=== PATIENT | female | born 1980 | race Caucasian/White ===

== ENCOUNTER 2020-09-19 11:15 | Emergency (ER) | payer BC ==
--- NOTE | 2020-09-19 12:23 | ER Document Report ---
ED Medical Screen (RME) - General Stated Complaint: ABDOMINAL PAIN, VAGINAL BLEEDING Time Seen by Provider: 09/19/20 12:19 Primary Care Provider: MURIEL SMITH NP [Primary Care Provider] - Follow up as needed Notes: HPI: 40-year-old female presenting with heavy vaginal bleeding with clots and pelvic cramping that began last night. Worse today at work. Describes handfuls of clots. Patient is concerned she might be having a miscarriage although she has a history of endometriosis and has irregular menstrual cycles last menstrual cycle was approximately 1 to 1-1/2 months ago. PHYSICAL EXAMINATION: Mild tenderness to the left pelvis on palpation. Patient appears uncomfortable I have greeted and performed a rapid initial assessment of this patient. A comprehensive ED assessment and evaluation of the patient, analysis of test re sults and completion of medical decision making process will be conducted by an additional ED providers. Physical Exam - Vital signs Vitals: Temp Pulse BP Pulse Ox 98.4 F 107 H 143/79 H 98 09/19/20 11:25 09/19/20 11:25 09/19/20 11:25 09/19/20 11:25 Course - Vital Signs Vital signs: Temp Pulse Resp BP Pulse Ox 98.4 F 107 H 143/79 H 98 09/19/20 11:25 09/19/20 11:25 09/19/20 11:25 09/19/20 11:25 Doctor's Discharge - Discharge Referrals: MURIEL SMITH NP [Primary Care Provider] - Follow up as needed
[2020-09-19 13:19] LABS: ABSOLUTE BASOPHILS # (AUTO) 0.1 10^3/uL (0.0-0.2); ABSOLUTE EOSINOPHILS # (AUTO) 0.6 10^3/uL (0.0-0.6); ABSOLUTE LYMPHOCYTES (AUTO) 3.7 10^3/uL (0.5-4.7); ABSOLUTE MONOCYTES (AUTO) 0.6 10^3/uL (0.1-1.4); ABSOLUTE NEUT (AUTO) 3.6 10^3/uL (1.7-8.2); BASOPHILS % (AUTO) 0.8 % (0-2); EOSINOPHILS % (AUTO) 6.7 % (0-6); HEMATOCRIT 29.3 % (36.0-47.0); HEMOGLOBIN 9.9 g/dL (12.0-15.5); LYMPHOCYTES % (AUTO) 43.4 % (13-45); MEAN CORPUSCULAR HEMOGLOBIN 28.2 pg (27.0-33.4); MEAN CORPUSCULAR HGB CONC 33.8 g/dL (32.0-36.0); MEAN CORPUSCULAR VOLUME 83 fl (80-97); PLATELET COUNT 328 10^3/uL (150-450); RED BLOOD COUNT 3.51 10^6/uL (3.72-5.28); RED CELL DISTRIBUTION WIDTH 12.9 % (11.5-14.0); SEGMENTED NEUTROPHILS % (AUTO) 42.1 % (42-78); TOTAL CELLS COUNTED % (AUTO) 100 %; WHITE BLOOD COUNT 8.6 10^3/uL (4.0-10.5)
[2020-09-19 13:31] LABS: ALBUMIN 4.8 g/dL (3.5-5.0); ALKALINE PHOSPHATASE 69 U/L (38-126); ANION GAP 12 (5-19); ASPARTATE AMINO TRANSFERASE 21 U/L (14-36); BILIRUBIN,DIRECT 0.1 mg/dL (0.0-0.4); BILIRUBIN,TOTAL 0.3 mg/dL (0.2-1.3); BLOOD UREA NITROGEN 15 mg/dL (7-20); CALCIUM 10.1 mg/dL (8.4-10.2); CARBON DIOXIDE 22 mmol/L (22-30); CHLORIDE 102 mmol/L (98-107); GLUCOSE 85 mg/dL (75-110); POTASSIUM 4.1 mmol/L (3.6-5.0); TOTAL PROTEIN 7.5 g/dL (6.3-8.2)
--- NOTE | 2020-09-19 13:57 | RADIOLOGY REPORT (SQ) ---
EXAM DESCRIPTION: U/S NON OB PEL TV W/DOPPLER IMAGES COMPLETED DATE/TIME: 09/19/2020 1:42 pm REASON FOR STUDY: left pelvic pain COMPARISON: None. TECHNIQUE: Dynamic and static grayscale images acquired of the pelvis via transvaginal approach and recorded on PACS. Additional selected color Doppler and spectral images recorded. LIMITATIONS: None. FINDINGS: UTERUS: Contour normal. No mass. ENDOMETRIAL STRIPE: No focal or generalized thickening. No masses. CERVIX: Nabothian cysts. RIGHT OVARY AND DOPPLER: Normal size. 2.7 cm cyst. No worrisome masses. Normal arterial vascular fl ow without evidence for torsion. LEFT OVARY AND DOPPLER: Normal size. 3.3 cm cyst. No worrisome masses. Normal arterial vascular tasha w without evidence for torsion. FREE FLUID: Trace. OTHER: No other significant finding. MEASUREMENTS: UTERUS: 4.3 x 5.1 x 8 6 cm. ENDOMETRIAL STRIPE: 11.6 mm. RIGHT OVARY: 2.3 x 3.1 x 3 6 cm. LEFT OVARY: 2.3 x 2.6 x 3.5 cm. IMPRESSION: BILATERAL OVARIAN CYSTS. NO TORSION. NO OTHER SIGNIFICANT FINDINGS TECHNICAL DOCUMENTATION: JOB ID: [id number] [employer]- All Rights Reserved Rev-03/15 Reading location - IP/workstation name: [email or web address]
[2020-09-19 16:10] LABS: APPEARANCE,URINE SLIGHTLY-CLOUDY; BILIRUBIN,URINE NEGATIVE (NEGATIVE); COLOR,URINE YELLOW; GLUCOSE, URINE NEGATIVE (NEGATIVE); KETONES,URINE 80 mg/dL (NEGATIVE); LEUKOCYTE ESTERASE,URINE NEGATIVE (NEGATIVE); NITRITE,URINE NEGATIVE (NEGATIVE); PROTEIN,URINE NEGATIVE (NEGATIVE); UROBILINOGEN,URINE NEGATIVE mg/dL (<2.0)
[2020-09-19] MEDS ORDERED: IBUPROFEN 800 MG TABLET PO ONE (16:30)
--- NOTE | 2020-09-19 16:31 | ER Document Report ---
ED GI/ - General Chief Complaint: Vaginal Bleeding Stated Complaint: ABDOMINAL PAIN, VAGINAL BLEEDING Time Seen by Provider: 09/19/20 12:19 Primary Care Provider: MURIEL SMITH NP [Primary Care Provider] - Follow up as needed Mode of Arrival: Ambulatory Information source: Patient Notes: Patient presents complaining of heavy vaginal bleeding that started yesterday. Patient states she has been passing several large clots. Last menstrual period prior to this was 6 weeks ago. Patient denies any urinary symptoms. Patient denies any concern about STI. Patient denies any chest discomfort or shortness of breath. Patient denies any nausea or vomiting. Patient reports occasional lightheadedness. Patient states that she did have a recent Pap smear in which they did a biopsy of her cervix and no cancer cells were noted. Patient states that she was concerned that she might be and having a miscarriage due to how heavy her bleeding was. - HPI Patient complains to provider of: Pelvic pain, Vaginal bleeding. No: Vaginal discharge Onset: Yesterday Timing/Duration: Gradual Quality of pain: Cramping Pain Level: 3 Location: Pelvis Vaginal bleeding (Compared to normal period): Heavier, Passing clots Associated symptoms: denies: Chest pain, Dysuria, Fever, Nausea, Urinary hesitancy, Urinary frequency, Urinary retention, Urinary urgency, Vomiting Exacerbated by: Denies Relieved by: Denies Similar symptoms previously: No Recently seen / treated by doctor: No - Related Data Allergies/Adverse Reactions: droperidol [From Inapsine] Allergy (Verified 09/19/20 12:23) Past Medical History - General Information source: Patient Last Menstrual Period: 1 month ago - Social History Smoking Status: Never Smoker Chew tobacco use (# tins/day): No Frequency of alcohol use: None Drug Abuse: None Occupation: [employer] Family History: Reviewed & Not Pertinent Renal/ Medical History: Reports: Other - Endometriosis Past Surgical History: Reports: Other - Laparoscopy Review of Systems - Review of Systems Constitutional: No symptoms reported. denies: Fever EENT: No symptoms reported Cardiovascular: No symptoms reported Respiratory: No symptoms reported. denies: Cough Gastrointestinal: Abdominal pain. denies: Vomiting Genitourinary: No symptoms reported. denies: Dysuria, Flank pain Female Genitourinary: Heavy/abnormal periods, Vaginal bleeding. denies: , Vaginal discharge Musculoskeletal: No symptoms reported. denies: Back pain Skin: No symptoms reported Hematologic/Lymphatic: No symptoms reported Neurological/Psychological: No symptoms reported Physical Exam - Vital signs Vitals: Temp Pulse BP Pulse Ox 98.4 F 107 H 143/79 H 98 09/19/20 11:25 09/19/20 11:25 09/19/20 11:25 09/19/20 11:25 - General General appearance: Appears well, Alert In distress: None - HEENT Head: Normocephalic, Atraumatic Eyes: Normal Conjunctiva: Normal Nasal: Normal Mouth/Lips: Normal Mucous membranes: Normal - Respiratory Respiratory status: No respiratory distress Chest status: Nontender Breath sounds: Normal. No: Rales, Rhonchi, Stridor, Wheezing Chest palpation: Normal - Cardiovascular Rhythm: Regular Heart sounds: S1 appreciated, S2 appreciated - Abdominal Inspection: Normal Distension: No distension Bowel sounds: Normal Tenderness: Tender - lower pelvic. No: Guarding Organomegaly: No organomegaly - Genitourinary External exam: Normal Speculum exam: Cervix closed Vaginal bleeding: Mild Bimanuel exam: Normal. No: Cervical motion tender, Adnexal tenderness - Back Back: Normal, Nontender. No: CVA tenderness - Extremities General upper extremity: Normal inspection, Nontender, Normal ROM General lower extremity: Normal inspection, Nontender, Normal ROM - Neurological Neuro grossly intact: Yes Cognition: Normal Jada Coma Scale Eye Opening: Spontaneous Jada Coma Scale Verbal: Oriented Jada Coma Scale Motor: Obeys Commands [place] Coma Scale Total: 15 - Psychological Associated symptoms: Normal affect, Normal mood - Skin Skin Temperature: Warm Skin Moisture: Dry Skin Color: Normal Course - Re-evaluation Re-evalutation: 09/19/20 17:35 Patient with complaints of heavy vaginal bleeding, pelvic exam was performed and only very minimal blood noted in vaginal vault, no large clots. Patient is mildly anemic although not at a level that requires transfusion. Patient otherwise hemodynamically stable and nontoxic in appearance. Patient encouraged to follow-up with her corporate banking officer for a recheck of today's visit. Discussed worsening signs or symptoms that patient should return immediately for. - Vital Signs Vital signs: Temp Pulse Resp BP Pulse Ox 98.1 F 80 16 113/63 98 09/19/20 17:11 09/19/20 17:11 09/19/20 17:11 09/19/20 17:11 09/19/20 17:11 - Laboratory Result Diagrams: 09/19/20 12:35 09/19/20 12:35 Laboratory results interpreted by me: 09/19/20 09/19/20 09/19/20 12:35 12:35 15:44 RBC 3.51 L Hgb 9.9 L Hct 29.3 L Eos % (Auto) 6.7 H Sodium 136.3 L Urine Ketones 80 H Urine Blood LARGE H 09/19/20 17:35 Labs- All tests 24 hr 09/19/20 09/19/20 09/19/20 12:35 12:35 12:35 WBC 8.6 RBC 3.51 L Hgb 9.9 L Hct 29.3 L MCV 83 MCH 28.2 MCHC 33.8 RDW 12.9 Plt Count 328 Lymph % (Auto) 43.4 [place] % (Auto) 7.0 Eos % (Auto) 6.7 H Baso % (Auto) 0.8 Absolute Neuts (auto) 3.6 Absolute Lymphs (auto) 3.7 Absolute Monos (auto) 0.6 Absolute Eos (auto) 0.6 Absolute Basos (auto) 0.1 Seg Neutrophils % 42.1 Sodium 136.3 L Potassium 4.1 Chloride 102 Carbon Dioxide 22 Anion Gap 12 BUN 15 Creatinine 0.71 Est GFR ( Amer) > 60 Est GFR (MDRD) Non-Af > 60 Glucose 85 Calcium 10.1 Total Bilirubin 0.3 Direct Bilirubin 0.1 Neonat Total Bilirubin Not Reportable Neonat Direct Bilirubin Not Reportable Neonat Indirect Bili Not Reportable AST 21 ALT 17 Alkaline Phosphatase 69 Total Protein 7.5 Albumin 4.8 Serum HCG, Qual NEGATIVE Urine Color Urine Appearance Urine pH Ur Specific Elliott Urine Protein Urine Glucose (UA) Urine Ketones Urine Blood Urine Nitrite Urine Bilirubin Urine Urobilinogen Ur Leukocyte Esterase Urine RBC (Auto) U Hyaline Cast (Auto) Urine Bacteria (Auto) Squamous Epi Cells Auto Urine Mucus (Auto) Urine Ascorbic Acid Blood Type Antibody Screen 09/19/20 09/19/20 12:35 15:44 WBC RBC Hgb Hct MCV MCH MCHC RDW Plt Count Lymph % (Auto) [place] % (Auto) Eos % (Auto) Baso % (Auto) Absolute Neuts (auto) Absolute Lymphs (auto) Absolute Monos (auto) Absolute Eos (auto) Absolute Basos (auto) Seg Neutrophils % Sodium Potassium Chloride Carbon Dioxide Anion Gap BUN Creatinine Est GFR ( Amer) Est GFR (MDRD) Non-Af Glucose Calcium Total Bilirubin Direct Bilirubin Neonat Total Bilirubin Neonat Direct Bilirubin Neonat Indirect Bili AST ALT Alkaline Phosphatase Total Protein Albumin Serum HCG, Qual Urine Color YELLOW Urine Appearance SLIGHTLY-CLOUDY Urine pH 5.0 Ur Specific Elliott 1.020 Urine Protein NEGATIVE Urine Glucose (UA) NEGATIVE Urine Ketones 80 H Urine Blood LARGE H Urine Nitrite NEGATIVE Urine Bilirubin NEGATIVE Urine Urobilinogen NEGATIVE Ur Leukocyte Esterase NEGATIVE Urine RBC (Auto) >182 U Hyaline Cast (Auto) 1 Urine Bacteria (Auto) TRACE Squamous Epi Cells Auto 1 Urine Mucus (Auto) RARE Urine Ascorbic Acid NEGATIVE Blood Type O POSITIVE Antibody Screen NEGATIVE - Diagnostic Test Radiology reviewed: Reports reviewed Discharge - Discharge Clinical Impression: Dysmenorrhea Menorrhagia Qualifiers: Menorrhagia type: with regular cycle Qualified Code(s): N92.0 - Excessive and frequent menstruation with regular cycle Condition: Stable Disposition: HOME, SELF-CARE Instructions: Anti-Inflammatory Medication ([facility]), Dysmenorrhea ([facility]), Menorrhagia ([facility]) Additional Instructions: Return immediately for any new or worsening symptoms Followup with your primary care provider, call tomorrow to make a followup appointment Follow-up with your ART THERAPY CERTIFIED SUPERVISOR provider for recheck of your abnormal vaginal bleeding Prescriptions: Naproxen [Naprosyn 250 Nmg Tablet] 1 tab PO BID #14 tablet Referrals: MURIEL SMITH NP [Primary Care Provider] - Follow up as needed
[2020-09-19 17:12] VITALS: BP 113/63
== END 2020-09-19 17:20 | disposition home or self-care (01) ==
LOC: ER 11:15
DX: N92.0 Excessive and frequent menstruation with regular cycle (principal); N94.6 Dysmenorrhea, unspecified; D64.9 Anemia, unspecified; N83.202 Unspecified ovarian cyst, left side; N83.201 Unspecified ovarian cyst, right side; R42 Dizziness and giddiness; Z88.8 Allergy status to other drugs, medicaments and biological substances
CPT/HCPCS: 36415; 76830; 80053; 81001; 84703; 85025; 86850; 86900; 86901; 93976; 99284

== ENCOUNTER 2020-09-20 18:44 | Emergency (ER) | payer BC ==
--- NOTE | 2020-09-20 22:08 | ER Document Report ---
ED Medical Screen (RME) - General Chief Complaint: Vaginal Bleeding Stated Complaint: HEAVY VAGINAL BLEEDING,DIZZY Time Seen by Provider: 09/20/20 21:58 Primary Care Provider: MURIEL SMITH NP [Primary Care Provider] - Follow up as needed Mode of Arrival: Wheelchair Information source: Patient Notes: HPI; 40-year-old female presents to the emergency room after a syncopal episode earlier today. Patient states she was seen here yesterday for vaginal bleeding that has worsened today. States she was sitting on the couch her said she fell falling to the floor hitting her head and was unconscious for a minute or 2. Patient states when she woke up she had peed her pants. Was diagnosed with ovarian cyst and anemia yesterday was discharged home but symptoms worsened today so she returned to the emergency room. She denies any nausea, vomiting. Her last normal menstrual cycle had been 2 weeks ago. She denies any injuries from the fall. PE: Alert and oriented x3. Lungs: Clear to auscultation without rales, rhonchi, wheezes. Heart: Tachycardic without murmurs, rubs, gallops. Presentation of head trauma in an otherwise well-appearing patient. No focal neurologic deficits on exam, no evidence of basilar skull fracture on exam without evidence of hemotympanum, raccoon eyes, or periauricular hematoma. No papilledema. Patient is not on anticoagulation. GCS is 15. Positive loss of consciousness. No episodes of vomiting. Patient is therefore positive via [place] head CT criteria and CT imaging will be obtained at this time. I have greeted and performed a rapid initial assessment of this patient. A comprehensive ED assessment and evaluation of the patient, analysis of test results and completion of the medical decision making process will be conducted by additional ED providers. I have specifically instructed the patient or family members with the patient to immediately return to any nursing staff should anything change in the patient's condition or with their chief complaint. TRAVEL OUTSIDE OF THE [place] IN LAST 30 DAYS: No - Related Data Allergies/Adverse Reactions: droperidol [From Inapsine] Allergy (Verified 09/19/20 12:23) Past Medical History Past Surgical History: Reports: Other - Laparoscopy Physical Exam - Vital signs Vitals: Temp Pulse Resp BP Pulse Ox 97.8 F 100 20 121/81 87 L 09/20/20 18:53 09/20/20 18:53 09/20/20 18:53 09/20/20 18:53 09/20/20 18:53 Course - Vital Signs Vital signs: Temp Pulse Resp BP Pulse Ox 97.8 F 100 20 121/81 87 L 09/20/20 18:53 09/20/20 18:53 09/20/20 18:53 09/20/20 18:53 09/20/20 18:53 Doctor's Discharge - Discharge Referrals: MURIEL SMITH NP [Primary Care Provider] - Follow up as needed
[2020-09-20 22:51] LABS: ABSOLUTE BASOPHILS # (AUTO) 0.1 10^3/uL (0.0-0.2); ABSOLUTE EOSINOPHILS # (AUTO) 0.2 10^3/uL (0.0-0.6); ABSOLUTE LYMPHOCYTES (AUTO) 2.3 10^3/uL (0.5-4.7); ABSOLUTE MONOCYTES (AUTO) 0.6 10^3/uL (0.1-1.4); ABSOLUTE NEUT (AUTO) 7.3 10^3/uL (1.7-8.2); BASOPHILS % (AUTO) 0.7 % (0-2); LYMPHOCYTES % (AUTO) 21.8 % (13-45); MEAN CORPUSCULAR HEMOGLOBIN 27.9 pg (27.0-33.4); MEAN CORPUSCULAR HGB CONC 33.5 g/dL (32.0-36.0); MEAN CORPUSCULAR VOLUME 83 fl (80-97); PLATELET COUNT 317 10^3/uL (150-450); RED BLOOD COUNT 2.88 10^6/uL (3.72-5.28); RED CELL DISTRIBUTION WIDTH 12.7 % (11.5-14.0); SEGMENTED NEUTROPHILS % (AUTO) 69.5 % (42-78); TOTAL CELLS COUNTED % (AUTO) 100 %; WHITE BLOOD COUNT 10.4 10^3/uL (4.0-10.5)
[2020-09-20 22:59] LABS: APPEARANCE,URINE CLEAR; BILIRUBIN,URINE NEGATIVE (NEGATIVE); COLOR,URINE YELLOW; GLUCOSE, URINE NEGATIVE (NEGATIVE); KETONES,URINE 80 mg/dL (NEGATIVE); LEUKOCYTE ESTERASE,URINE NEGATIVE (NEGATIVE); NITRITE,URINE NEGATIVE (NEGATIVE); PROTEIN,URINE NEGATIVE (NEGATIVE); URINE SPECIFIC GRAVITY 1.021; UROBILINOGEN,URINE NEGATIVE mg/dL (<2.0)
--- NOTE | 2020-09-20 23:15 | RADIOLOGY REPORT (SQ) ---
EXAM DESCRIPTION: CT HEAD WITHOUT IV CONTRAST COMPLETED DATE/TME: 09/20/2020 22:44 CLINICAL HISTORY: syncope COMPARISON: None available TECHNIQUE: Axial CT of the head obtained from the skull apex to the skull base without contrast. FINDINGS: No acute intracranial hemorrhage identified. No mass, mass effect, shift of the midline, abnormal extra-axial fluid collection or CT evidence of acute ischemic change identified. The ventricular system is unremarkable. No acute abnormalities of the supratentorial white matter, basal ganglia, cerebellum, or brainstem. The visualized paranasal sinuses and the mastoid air cells are relatively well aerated. No skull fracture identified. Visualized orbits and globes are unremarkable. IMPRESSION: 1. No acute intracranial abnormality identified. This exam was performed according to our departmental dose-optimization program, which includes automated exposure control, adjustment of the mA and/or kV according to patient size and/or use of iterative reconstruction technique.
[2020-09-20 23:24] LABS: ALBUMIN 4.1 g/dL (3.5-5.0); ALKALINE PHOSPHATASE 52 U/L (38-126); ANION GAP 11 (5-19); ASPARTATE AMINO TRANSFERASE 19 U/L (14-36); BILIRUBIN,DIRECT 0.1 mg/dL (0.0-0.4); BILIRUBIN,TOTAL 0.2 mg/dL (0.2-1.3); BLOOD UREA NITROGEN 16 mg/dL (7-20); CALCIUM 9.9 mg/dL (8.4-10.2); CARBON DIOXIDE 23 mmol/L (22-30); CHLORIDE 100 mmol/L (98-107); CREATINE KINASE 53 U/L (30-135); GLUCOSE 95 mg/dL (75-110); POTASSIUM 4.5 mmol/L (3.6-5.0); TOTAL PROTEIN 6.5 g/dL (6.3-8.2)
[2020-09-20 23:33] LABS: CREATINE KINASE MB 0.88 ng/mL (<4.55)
[2020-09-20 23:38] LABS: TROPONIN I < 0.012 ng/mL
--- NOTE | 2020-09-21 01:30 | ER Document Report ---
ED General - General Chief Complaint: Vaginal Bleeding Stated Complaint: HEAVY VAGINAL BLEEDING,DIZZY Time Seen by Provider: 09/20/20 21:58 Primary Care Provider: MURIEL SMITH NP [Primary Care Provider] - Follow up as needed Mode of Arrival: Wheelchair TRAVEL OUTSIDE OF THE [place] IN LAST 30 DAYS: No - HPI Notes: Patient is a 40-year-old female who presents to the emergency department for evaluation of a syncopal episode. The patient was seen here yesterday for heavy vaginal bleeding. She states she went through approximately 20 menstrual pads in 24 hours. She was seen here and found to be anemic. She was started on iron, Naprosyn for her cramps. She states that her bleeding continued at home. Earlier tonight she was at the kitchen table. She felt dizzy and lightheaded, evidently had a syncopal episode and collapsed to the ground. She was incontinent of urine. No seizure-like activity per the . She was unconscious for approximately 1 minute. She states since then she feels weak, but her vaginal bleeding has entirely stopped. She has had extremely heavy periods in the past. She has menstrual periods that last from 3 days to 3 weeks. She does have a history of endometriosis. In the past she was still considering trying to get , so no pharmacological interventions were performed to help her with her bleeding. She does follow closely with CHRONOGRAPH OPERATOR. - Related Data Allergies/Adverse Reactions: droperidol [From Inapsine] Allergy (Verified 09/19/20 12:23) Home Medications: iron, xanax prn, naproxen Past Medical History - General Information source: Patient - Social History Smoking Status: Never Smoker Family History: Reviewed & Not Pertinent, Other - Crohn's disease Psychiatric Medical History: Reports: Hx Anxiety Past Surgical History: Reports: Hx Abdominal Surgery - Laparoscopy for endometriosis, Hx Dilation and Curettage Review of Systems - Review of Systems Constitutional: See HPI EENT: No symptoms reported Cardiovascular: See HPI Respiratory: No symptoms reported Gastrointestinal: No symptoms reported Genitourinary: No symptoms reported Female Genitourinary: See HPI Musculoskeletal: No symptoms reported Skin: No symptoms reported Hematologic/Lymphatic: See HPI Neurological/Psychological: No symptoms reported -: Yes All other systems reviewed and negative Physical Exam - Vital signs Vitals: Temp Pulse Resp BP Pulse Ox 97.8 F 100 20 121/81 87 L 09/20/20 18:53 09/20/20 18:53 09/20/20 18:53 09/20/20 18:53 09/20/20 18:53 - Notes Notes: Vital signs reviewed, please refer to chart. Head is normocephalic, atraumatic. Pupils equal round, reactive to light. Conjunctive are pale. Neck is supple without meningismus. Heart is regular rate and rhythm. Lungs are clear to auscultation bilaterally. Abdomen is soft, nontender, normoactive bowel sounds throughout. Extremities without cyanosis, clubbing. Posterior calves are nontender. Peripheral pulses are equal. Skin is warm and dry. Patient is awake, alert, oriented x3. Cranial nerves II - XII are grossly intact without focal neurological deficits. Strength is plus 5 out of 5 bilateral upper and lower extremities. Sensation is intact. Reflexes symmetrical. Intact [id number], rapid alternating movements, [id number]. Course - Re-evaluation Re-evalutation: 09/21/20 01:29 Patient presents emergency department for evaluation after syncopal episode. She has had heavy vaginal bleeding, but this is since stopped. Her laboratory investigations revealed a hemoglobin of 8. This was a significant change from last night, but I do believe that this was just catching up. Her vaginal bleeding has already stopped. She had a normal transvaginal ultrasound yesterday, unremarkable pelvic exam. She is already on iron. Orthostatic vital signs have been ordered, but I do not suspect the patient is orthostatic. She was at rest when this happened. I suspect this was secondary to acute blood loss. She is young and healthy, I do not see any indication for blood transfusion at this time. She states that since her bleeding is stopped she already feels "stronger." She already has an established relationship with OB/ PROCESSING TECH, she is encouraged to follow-up closely with them. She is also encouraged to discuss treatment for her menometrorrhagia. She voiced understanding. Otherwise she is to continue iron supplementation. If her bleeding returns, or she develops worsening or new concerning symptoms of any sort, she is to return immediately to the emergency department for evaluation. - Vital Signs Vital signs: Temp Pulse Resp BP Pulse Ox 97.8 F 85 16 101/66 98 09/20/20 18:53 09/20/20 23:38 09/20/20 22:11 09/20/20 23:38 09/20/20 23:38 - Laboratory Result Diagrams: 09/20/20 22:30 09/20/20 22:30 Laboratory results interpreted by me: 09/20/20 09/20/20 09/20/20 22:30 22:30 22:30 RBC 2.88 L Hgb 8.0 L Hct 24.0 L Sodium 134.3 L Urine Ketones 80 H Urine Blood LARGE H - EKG Interpretation by Me Additional EKG results interpreted by me: 09/21/20 01:30 Sinus mechanism with rate of 75 bpm. Normal axis and intervals. Nonspecific T wave changes, but no acute ST elevation concerning for infarction. No old studies available for comparison. Discharge - Discharge Clinical Impression: Menometrorrhagia, Syncope and collapse Anemia Qualifiers: Anemia type: unspecified type Qualified Code(s): D64.9 - Anemia, unspecified Condition: Stable Disposition: HOME, SELF-CARE Instructions: Syncopal Episode ([facility]), Anemia ([facility]) Additional Instructions: Your hemoglobin is lower today, but I suspect that this is catching up from the blood loss you have had over the last 36 hours. Please follow-up closely with your CHRONOGRAPH OPERATOR, discuss treatments for your heavy vaginal bleeding. Please take the iron as directed. Stay hydrated. Follow-up with your primary care provider next week. If you develop worsening or new concerning symptoms of any sort, please return immediately to the emergency department for evaluation. Referrals: MURIEL SMITH NP [Primary Care Provider] - Follow up as needed
[2020-09-21 01:40] VITALS: BP 116/72
--- NOTE | 2020-09-21 07:31 | EKG REPORT ---
SEVERITY:- BORDERLINE ECG - SINUS RHYTHM INFERIOR Q WAVES, PROBABLY NORMAL VARIATION BORDERLINE T ABNORMALITIES, ANTERIOR LEADS : Confirmed by: Salvatore Zhu MD 21-Sep-2020 07:30:51
== END 2020-09-21 01:43 | disposition home or self-care (01) ==
LOC: ER 18:44
DX: R55 Syncope and collapse (principal); N92.1 Excessive and frequent menstruation with irregular cycle; D64.9 Anemia, unspecified; R25.2 Cramp and spasm; F41.9 Anxiety disorder, unspecified; Z88.8 Allergy status to other drugs, medicaments and biological substances
CPT/HCPCS: 36415; 70450; 80053; 81001; 82550; 82553; 84484; 85025; 93005; 93010; 99285